=== PATIENT | female | born 1990 | race African-American/Black ===

== ENCOUNTER 2025-04-26 13:45 | Emergency (ER) | payer OTHER, SELFPAY ==
--- NOTE | 2025-04-26 13:49 | ED.RECABL ---
HPI - Recheck/Abnormal Lab/Rx General Chief Complaint: Recheck/Abnormal Lab/Rx Stated Complaint: Unusual lab results MERLIN Lira Time Seen by Provider: 04/26/25 13:48 History of Present Illness HPI narrative: Ms. Sorensen is a pleasant 35-year-old female with no significant past medical history, 3 prior vaginal deliveries, who presents to the emergency department for right lower quadrant abdominal pain x6 days, fever x3 days, concern for abnormal outpatient urine result. Patient is in the [employer] and has been on a ship for the last 2-1/2 weeks. Ship did not have working bathroom so she was drinking less water. She has been having some burning with urination and right lower quadrant abdominal pain. She developed a fever 3 days ago when she got home from the ship. She went to the [employer] doctor today and had a urinalysis with blood and protein so she was sent to the ER. She has been having fevers and chills. She does have decreased appetite. Her LMP was shorter than usual and it was 04/11/2025. She denies chest pain, shortness of breath, cough, vomiting. She did have diarrhea 3 days ago that has resolved. Related Data Previous Rx's ?Medication ?Instructions ?Recorded cefpodoxime 200 mg tablet 200 mg PO BID 14 days #28 tabs 04/26/25 ibuprofen 400 mg tablet 400 mg PO Q6H PRN fever or pain 04/26/25 #20 tabs Allergies Allergy/AdvReac Type Severity Reaction Status Date / Time No Known Drug Allergies Allergy Verified 04/26/25 13:55 Review of Systems Review of Systems ROS Unobtainable: All systems reviewed & are unremarkable except as noted in HPI and below Exam Narrative Exam Narrative: GENERAL: 35 year old patient appears stated age. Well-developed patient, in no acute distress. HEAD: Atraumatic. Normocephalic. EYES: PNo scleral icterus. No injection or drainage. NECK: Trachea midline. Cervical ROM intact. CARDIOVASCULAR: Increased rate and regular rhythm. RESPIRATORY: ?Nonlabored respirations. ?Speaking in clear, full sentences. ?Clear to auscultation. Breath sounds equal bilaterally. No wheezes, rales, or rhonchi. ? GASTROINTESTINAL: Abdomen soft, nondistended. Mild tenderness to palpation of the right lower quadrant, closer to the umbilicus than McBurney's point. No rebound or guarding. Normal bowel sounds. EXTREMITIES: No LE edema. BACK: No CVA tenderness BL. NEURO: AOx3. ?Clear speech. ?Moves all 4 extremities appropriately. SKIN: No rash or erythema of visible areas Initial Vital Signs Initial Vital Signs: Vital Signs Temperature 100.5 F H 04/26/25 13:51 Pulse Rate 114 H 04/26/25 13:51 Respiratory Rate 12 04/26/25 13:51 Blood Pressure 145/63 H 04/26/25 13:51 Pulse Oximetry 98 04/26/25 13:51 Oxygen Delivery Method Room Air 04/26/25 13:51 Course Orders Ordered: Discontinued Medications Acetaminophen (Acetaminophen 325 Mg Tablet) 975 mg PO NOW ONE Stop: 04/26/25 14:05 Last Admin: 04/26/25 14:16 Dose: 975 mg Documented By: DEEJAY Sodium Chloride (Normal Saline 0.9%) 1,000 mls @ 1,000 mls/hr IV BOLUS ONE Stop: 04/26/25 15:00 Last Infusion: 04/26/25 16:21 Dose: Infused Documented By: Admin: 04/26/25 14:17 Dose: 1,000 mls/hr Documented By: DEEJAY Ceftriaxone Sodium 1,000 mg/ (Sodium Chloride) 100 mls @ 200 mls/hr IV NOW ONE Stop: 04/26/25 14:05 Last Infusion: 04/26/25 14:30 Dose: Infused Documented By: Admin: 04/26/25 14:24 Dose: 200 mls/hr Documented By: DEEJAY Sodium Chloride (Normal Saline 0.9%) 2,076 mls @ 1,384 mls/hr 30 ml/kg infuse over 90 min (2076 ml) IV NOW ONE Stop: 04/26/25 15:37 Last Infusion: 04/26/25 16:20 Dose: Infused Documented By: Admin: 04/26/25 13:45 Dose: 1,384 mls/hr Documented By: KEVON Ketorolac Tromethamine (Ketorolac 30 Mg/Ml Vial) 15 mg IV NOW ONE Stop: 04/26/25 14:05 Last Admin: 04/26/25 14:14 Dose: 15 mg Documented By: DEEJAY Ondansetron HCl (Ondansetron 4 Mg/2 Ml Inj) 4 mg IV NOW PRN PRN Reason: Nausea And Vomiting Last Admin: 04/26/25 14:13 Dose: 4 mg Documented By: [facility] Ondansetron HCl (Ondansetron 4 Mg Odt) 4 mg PO NOW PRN PRN Reason: Nausea And Vomiting Vital Signs Vital signs: Vital Signs - 8 hr 04/26/25 13:51 04/26/25 14:16 04/26/25 16:30 Temperature 100.5 F H 100.3 F H 98.2 F Pulse Rate 114 H 83 Respiratory Rate 12 16 Blood Pressure 145/63 H 109/58 L Pulse Oximetry 98 99 Oxygen Delivery Method Room Air Room Air MDM - Recheck/Abnormal Lab/Rx Medical Records Medical records narrative: None available Lab Data 04/26/25 14:15 04/26/25 14:15 Labs: Lab Results 04/26/25 04/26/25 04/26/25 Range/Units 14:03 14:15 14:21 WBC 7.1 (4.5-11.0) X10^3/uL RBC 3.66 L (4.0-5.2) X10^6/uL Hgb 10.8 L (12.0-16.0) g/dL Hct 31.9 L (36-46) % MCV 87.2 (80-100) fL MCH 29.6 (26-34) PG MCHC 33.9 (30-36) % RDW 14.0 (11.6-14.8) % Plt Count 137 L (150-400) X10^3/uL Neut % (Auto) 67.9 (50-75) % Lymph % (Auto) 13.4 L (25-40) % [place] % (Auto) 17.1 H (3-14) % Eos % (Auto) 1.2 L (2-4) % Baso % (Auto) 0.4 (0-2) % Neut # (Auto) 4800 (6290-6570) /uL Lymph # (Auto) 1000 L (2570-8836) /uL [place] # (Auto) 1200 H (0-900) /uL Eos # (Auto) 100 (0-450) /uL Baso # (Auto) 0 (0-100) /uL PT 15.8 H (9.4-12.5) SECONDS INR 1.4 H (0.9-1.3) APTT 29 (25.1-36.5) SECONDS Sodium 137 (137-145) mmol/L Potassium 3.4 (3.4-5.1) mmol/L Chloride 100 (98-107) mmol/L Carbon Dioxide 25 (22-32) mmol/L BUN 13 (7-17) mg/dL Creatinine 0.86 (0.52-1.04) mg/dL Estimated GFR > 60 (>60) mL/min BUN/Creatinine Ratio 15.1 (6-22) Glucose 87 (70-99) mg/dL Lactate 0.9 (0.7-2.1) mmol/L Calcium 8.7 (8.4-10.2) mg/dL Total Bilirubin 0.5 (0.2-1.3) mg/dL AST 23 (14-36) IU/L ALT 20 (<35) IU/L Alkaline Phosphatase 88 (38-126) U/L Total Protein 8.3 H (6.3-8.2) g/dL Albumin 4.4 (3.5-5.0) g/dL Globulin 3.9 (1.7-4.1) g/dL Albumin/Globulin Ratio 1.1 (1.0-2.8) Lipase 28 (23-300) U/L Procalcitonin 0.439 (<0.5) ng/mL Urine RBC None seen (0-5/HPF) Urine WBC 30-100/hpf H (0-5/HPF) Ur Squamous Epith Cells 0-1 /hpf (0-5/HPF) Urine Bacteria Moderate (10-30) H (None) Ur Culture Indicated? Specimen cultured Vol Urine Centrifuged 20 SARS-CoV-2 (PCR) Negative (Negative) Influenza A (RT-PCR) Flu a negative (NEGATIVE) Influenza B (RT-PCR) Flu b negative (NEGATIVE) RSV (PCR) Negative (Negative) Point of Care Testing Test Results Negative Urine Dip Bedside Urine Glucose Negative Bedside Urine Bilirubin - Negative Bedside Urine Ketone - Negative Urine Specific [place] 1.010 Bedside Urine Occult Blood ++ Bedside Urine pH 6.0 Bedside Urine Protein ++ 100 Bedside Urine Urobilinogen - Negative Bedside Urine Nitrite - Negative Bedside Urine Leukocytes +++ 500 Esterase Imaging Data Chest x-ray: Radiologist's Impression: PROCEDURE: XR CHEST 1V INDICATIONS: suspected sepsis TECHNIQUE: One view of the chest was acquired. COMPARISON: None. FINDINGS: Surgical changes and devices: None. Lungs and pleura: Lungs are clear. No pleural effusions or pneumothorax. Mediastinum: Mediastinal contours appear normal. Heart size is normal. Bones and chest wall: No suspicious bony lesions. Overlying soft tissues appear unremarkable. IMPRESSION: No acute cardiopulmonary abnormality is seen. Dictated by: Sanchez Sharma M.D. on 04/26/2025 at 14:58 Approved by: Sanchez Sharma M.D. on 04/26/2025 at 14:59 CT scan - abdomen/pelvis: Radiologist's Impression: PROCEDURE: CT ABDOMEN PELVIS W CON INDICATIONS: RLQ pain; febrile TECHNIQUE: After the administration of intravenous contrast, axial sections acquired from the lung bases to the pubic symphysis. Coronal and sagittal reformats were performed. For radiation dose reduction, the following was used: automated exposure control, adjustment of mA and/or kV according to patient size. COMPARISON: None. FINDINGS: Quality: Diagnostic. Lower Chest: Unremarkable. Abdomen: Liver: Unremarkable. Gallbladder and bile ducts: Unremarkable. Pancreas: Unremarkable. Spleen: Unremarkable. Adrenal Glands: Unremarkable. Kidneys and Ureters: Focal swelling and decreased perfusion of the right kidney midpole lateral aspect and to a lesser extent in the superior pole. No hydronephrosis or hydroureter.. Stomach: Unremarkable. Bowel: No abnormal dilation. No wall thickening. Appendix not identified Peritoneum: Trace free fluid in the pelvis No free air. Pelvis: Reproductive: Unremarkable. Bladder: Contracted bladder with greater than expected wall thickening diffusely. Other: Lymphatic: No adenopathy. Vasculature: No aortic aneurysm. Abdominal wall: Intact. Bones: No aggressive osseous lesion. IMPRESSION: Acute right pyelonephritis. Bladder wall thickening concerning for cystitis. Dictated by: Sanchez Sharma M.D. on 04/26/2025 at 15:19 Approved by: Sanchez Sharma M.D. on 04/26/2025 at 15:23 MDM Narrative Medical decision making narrative: 35-year-old female with no significant past medical history, 3 prior vaginal deliveries, who presents to the emergency department for right lower quadrant abdominal pain x6 days, fever x3 days, concern for abnormal outpatient urine result. Differential diagnosis includes but is not limited to sepsis, appendicitis, pyelonephritis, infected stone, colitis, SHANTEL, electrolyte derangement, etc. On exam the patient is in no acute distress, nontoxic appearing. She is febrile and tachycardic. She does have mild right lower quadrant abdominal tenderness with no rebound or guarding. She had an abnormal outpatient urinalysis and she has been having some dysuria. Full initiate sepsis order set with fluids, ceftriaxone, and obtain CT abdomen and pelvis with IV contrast. Treat with Toradol and Tylenol. Urinalysis is consistent with infection, many WBCs and bacteria. Negative viral swab. Lab work overall reassuring with a normal WBC count 7.1. However patient does have low hemoglobin 10.8, RBC count 3.66 and platelets 137. Sodium normal 137, potassium low end of normal 3.4, BUN 13 creatinine 0.86. Glucose 87. Normal lactate 0.9. Normal LFTs. Normal lipase 28. Normal procalcitonin 0.439. Chest x-ray reveals no acute abnormality. CT reveals acute right pyelonephritis and cystitis consistent with the patient's history, physical exam lab work. Patient meets sepsis criteria based on concern for abdominal or urine infection with elevated heart rate and elevated temperature. She was treated with 30 mL/kilogram IV fluids and antibiotics within the 1st hour. Repeat perfusion assessment done within 6 hours reveals improved vital signs. Patient's vital signs improved significantly, with normalization of heart rate, decrease in temperature. Repeat abdominal exam is improved, nonsurgical. We will treat patient with cefpodoxime 200 mg b.i.d. times 14 days for pyelonephritis. Discussed supportive care including ibuprofen, acetaminophen, [place] 0, increase hydration, rest. Discussed very strict ER return precautions. Patient verbalized understanding of all information is agreeable with the plan, she is ambulatory, stable for discharge home, all vital signs within normal limits. Discharge Plan Departure Patient Disposition: Home Clinical Impression: Pyelonephritis Anemia Qualifiers: Anemia type: unspecified type Qualified Code(s): D64.9 - Anemia, unspecified Instructions: DI for Kidney Infection Activity Restrictions/Additional Instructions: Dear Ms. Sorensen, Thank you for coming to the emergency department. Today you were evaluated for abdominal pain and your workup revealed a right kidney infection. You have been prescribed 2 weeks of antibiotics, it is very important to complete the full 2 week course of these antibiotics. Please increase hydration, use over the counter AZO for burning with urination, and use ibuprofen and Tylenol alternating every 3 hours as needed for pain and fevers. Please return to the emergency department immediately if you develop severe pain, persistent fevers, worsening symptoms or any other concerns. Please follow up with your primary care doctor within the next 2-3 days for ER follow-up. (If you do not have a PCP you can call [phone]. ?to schedule an appointment with an [facility] Primary Care Provider) IF YOU DEVELOP ANY NEW OR WORSENING SYMPTOMS, RETURN TO THE ER! Please read the attached instructions, they highlight more specific treatments and interventions for you at home. Thank you for letting me participate in your care, Patsy Boss PA-C Prescriptions: New cefpodoxime 200 mg tablet 200 mg PO BID 14 Days Qty: 28 0RF Rx Instructions: must administer with a meal/food ibuprofen 400 mg tablet 400 mg PO Q6H PRN (Reason: fever or pain) Qty: 20 0RF Referrals: [facility] [Primary Care Provider, Family Practice] Stand Alone Forms: Patient Portal/API, Work Release Note
[2025-04-26 13:51] VITALS: BP 145/63; PULSE 114; RESP 12; TEMP 38.1; O2SAT 98; BMI 23.8
--- NOTE | 2025-04-26 14:01 | DI.RAD.S_ITS ---
PROCEDURE: XR CHEST 1V INDICATIONS: suspected sepsis TECHNIQUE: One view of the chest was acquired. COMPARISON: None. FINDINGS: Surgical changes and devices: None. Lungs and pleura: Lungs are clear. No pleural effusions or pneumothorax. Mediastinum: Mediastinal contours appear normal. Heart size is normal. Bones and chest wall: No suspicious bony lesions. Overlying soft tissues appear unremarkable. IMPRESSION: No acute cardiopulmonary abnormality is seen. Dictated by: Sanchez Sharma M.D. on 04/26/2025 at 14:58 Approved by: Sanchez Sharma M.D. on 04/26/2025 at 14:59
--- NOTE | 2025-04-26 14:08 | DI.CT.S_ITS ---
PROCEDURE: CT ABDOMEN PELVIS W CON INDICATIONS: RLQ pain; febrile TECHNIQUE: After the administration of intravenous contrast, axial sections acquired from the lung bases to the pubic symphysis. Coronal and sagittal reformats were performed. For radiation dose reduction, the following was used: automated exposure control, adjustment of mA and/or kV according to patient size. COMPARISON: None. FINDINGS: Quality: Diagnostic. Lower Chest: Unremarkable. Abdomen: Liver: Unremarkable. Gallbladder and bile ducts: Unremarkable. Pancreas: Unremarkable. Spleen: Unremarkable. Adrenal Glands: Unremarkable. Kidneys and Ureters: Focal swelling and decreased perfusion of the right kidney midpole lateral aspect and to a lesser extent in the superior pole. No hydronephrosis or hydroureter.. Stomach: Unremarkable. Bowel: No abnormal dilation. No wall thickening. Appendix not identified Peritoneum: Trace free fluid in the pelvis No free air. Pelvis: Reproductive: Unremarkable. Bladder: Contracted bladder with greater than expected wall thickening diffusely. Other: Lymphatic: No adenopathy. Vasculature: No aortic aneurysm. Abdominal wall: Intact. Bones: No aggressive osseous lesion. IMPRESSION: Acute right pyelonephritis. Bladder wall thickening concerning for cystitis. Dictated by: Sanchez Sharma M.D. on 04/26/2025 at 15:19 Approved by: Sanchez Sharma M.D. on 04/26/2025 at 15:23
[2025-04-26] MEDS: ONDANSETRON 4 MG/2 ML INJ IV (14:13)
[2025-04-26] MEDS: KETOROLAC 30 MG/ML VIAL 15 MG IV (14:14)
[2025-04-26 14:16] VITALS: TEMP 37.9
[2025-04-26] MEDS: ACETAMINOPHEN 325 MG TABLET 975 MG PO (14:16)
[2025-04-26] MEDS: SODIUM CHLORIDE 0.9% 1,000 ML 1000 ML IV (14:17)
[2025-04-26 14:32] LABS: Add Manual Diff / Slide Review NO; Hematocrit 31.9 % (36-46); Hemoglobin 10.8 g/dL (12.0-16.0); Lymphocytes Absolute Auto 1000 /uL (1100-4500); Mean Corpuscular HGB Conc 33.9 % (30-36); Mean Corpuscular Hemoglobin 29.6 PG (26-34); Mean Corpuscular Volume 87.2 fL (80-100); Platelet Count 137 X10^3/uL (150-400)
[2025-04-26 14:45] LABS: INR 1.4 (0.9-1.3); Prothrombin Time 15.8 SECONDS (9.4-12.5)
[2025-04-26 14:48] LABS: PTT Partial Thromboplastin Tim 29 SECONDS (25.1-36.5)
[2025-04-26 14:49] LABS: Alanine Aminotransferase 20 IU/L (<35); Albumin 4.4 g/dL (3.5-5.0); Albumin Globulin Ratio 1.1 (1.0-2.8); Alkaline Phosphatase 88 U/L (38-126); Blood Urea Nitrogen 13 mg/dL (7-17); Calcium 8.7 mg/dL (8.4-10.2); Carbon Dioxide 25 mmol/L (22-32); Chloride 100 mmol/L (98-107); Estimated Glomerular Filt Rate > 60 mL/min (>60); Globulin 3.9 g/dL (1.7-4.1); Glucose 87 mg/dL (70-99); HEMOLYSIS < 15 (0-50); Lactate (Lactic Acid) 0.9 mmol/L (0.7-2.1); Lipase 28 U/L (23-300); Potassium 3.4 mmol/L (3.4-5.1); Sodium 137 mmol/L (137-145); Total Protein 8.3 g/dL (6.3-8.2)
[2025-04-26 14:57] LABS: Culture Indicated Urine Specimen Cultured
[2025-04-26 15:00] LABS: COVID-19 CEPHEID 4-PLEX PCR Negative (Negative); Influenza A - CEPHEID Flu A NEGATIVE (NEGATIVE); Influenza B - CEPHEID Flu B NEGATIVE (NEGATIVE)
[2025-04-26 15:06] LABS: Procalcitonin 0.439 ng/mL (<0.5)
[2025-04-26 16:30] VITALS: BP 109/58; PULSE 83; RESP 16; TEMP 36.8; O2SAT 99
[2025-04-26 17:45] VITALS: BP 110/72; PULSE 82; RESP 16; O2SAT 98
== END 2025-04-26 17:50 | disposition home or self-care (01) ==
PROVIDERS: Emergency Provider Physician Assistant
DX: N12 Tubulo-interstitial nephritis, not specified as acute or chronic (principal); R30.0 Dysuria; R50.9 Fever, unspecified; R19.7 Diarrhea, unspecified; D64.9 Anemia, unspecified
CPT/HCPCS: 36415; 71045; 74177; 80053; 81003; 81015; 81025; 83605; 83690; 84145; 85025; 85610; 85730; 87040; 87077; 87086; 87186; 87637; 96361; 96374; 96375; 99284; J0696; J1885; J2405; J7030; J7050; Q9967